=== PATIENT | female | born 1950 | race Caucasian/White ===

== ENCOUNTER → 2016-07-09 | Outpatient (CLI) | payer MEDICARE, OTHER ==
[2015-01-24 13:15] VITALS: BP 140/68
[~2016-07-09] MED LIST: ATOR40TA59 PO; BUPR150T8 PO; CETI10TA22 PO; CINN500C PO; CONTRAST GIVEN MC PRN; DOCU50CA9 PO; IOHEXOL 300 MG/ML 75 ML VIAL IV ONE; MESA800T2 PO; MULT1TAB52 PO; OMEP20CA9 PO; OXYC-323 PO; SERT100T PO; SYNTHROID PO; VITA1CAP PO
--- NOTE | 2016-07-09 12:43 | RAD ---
CTA of the chest with contrast, 07/09/2016: History: Follow-up pulmonary emboli Multidetector CT imaging was performed following an IV bolus injection of iodinated contrast material. Multiplanar reconstructions were produced including coronal MIP images. Comparison is made to a study from 01/23/2016. The main pulmonary arteries are widely patent. There is severe narrowing of the left lower lobe pulmonary artery in a pattern suggesting a partially recanalized thrombus. The appearance is unchanged since the previous study. There is a small nonocclusive filling defect in one of the segmental pulmonary arteries extending inferiorly from this level. The findings are unchanged since 01/23/2016. No definite left upper lobe or right lung pulmonary arterial filling defects are seen. Streak artifacts arising from contrast in the superior vena cava obscures portions of the proximal right upper lobe pulmonary artery. Mildly increased density in the right paratracheal/ azygos region is unchanged compatible with a residual mildly enlarged lymph node. No new or enlarging mediastinal or hilar lymph nodes are seen. No axillary adenopathy is evident. A right sided Port-A-Cath extends into the right atrium. Streaky parenchymal opacities are present in the periphery of the left lower lobe and lingula, unchanged. These probably represent scars. There is mild dependent atelectasis. No pulmonary mass or significant consolidation is seen. There is no evidence of pleural fluid. There are soft tissue densities in the celiac axis region probably representing residual adenopathy. These densities cannot be clearly from unopacified bowel on this study. A similar appearance was present on the previous exam. IMPRESSION: 1. Unchanged chronic pulmonary embolus in the left lower lobe pulmonary artery. 2. No new pulmonary emboli are detected. 3. Stable left basilar pleural-parenchymal opacities compatible with scarring. 4. Unchanged mild residual right paratracheal and celiac region adenopathy. PQRS statement: One or more of the following individualized dose reduction techniques were utilized for this examination: 1. Automated exposure control 2. Adjustment of the mA and/or kV according to patient size 3. Use of iterative reconstruction technique
== END | disposition home or self-care (01) ==
LOC: CT 11:47
PROVIDERS: ATTEND Internal Medicine Hematology & Oncology
DX: Z86.711 Personal history of pulmonary embolism (principal)
CPT/HCPCS: 71275; Q9967

== ENCOUNTER → 2016-12-20 | Outpatient (CLI) | payer MEDICARE, OTHER ==
[2015-01-24 13:15] VITALS: BP 140/68
[~2016-12-20] MED LIST changes: -CINN500C PO; +CINN500C2 PO; -CONTRAST GIVEN MC PRN; -IOHEXOL 300 MG/ML 75 ML VIAL IV ONE
--- NOTE | 2016-12-20 11:04 | RAD ---
Indication restage lymphoma. PET/CT was performed from the skull through the proximal thigh. CT was performed primarily for attenuation and localization purposes as opposed to primary diagnostic purposes. The blood sugar during the examination was entered and 16. 13.9 mCi of FDG was administered. Note is made of a prior examination one year ago. On CT the visualized brain appears unremarkable. No significant adenopathy is seen in the neck. No axillary adenopathy is seen on either side. There is no significant hilar or mediastinal adenopathy. There are scattered areas of pleural-parenchymal scarring. A dominant soft tissue mass is not seen in the chest. In the abdomen and pelvis there is soft tissue fullness in the periaortic area similar to the previous exam. Some slight soft tissue fullness along the right iliac chain is noted similar to the previous exam. On PET the radiopharmaceutical is physiologically distributed in the visualized brain. No abnormal activity is seen in the neck. No FDG avid activity is seen in either axilla. No abnormal mediastinal or hilar activity is seen. In the abdomen periaortic lymph nodes are minimally FDG avid. There is a more intense focus of FDG activity seen in the right pelvis. This is probably artifactual and in the gastrointestinal or genitourinary system. No definite CT correlate is seen in this area in the pelvis. Maximum SUV associated with these periaortic lymph nodes is approximately 3.5 IMPRESSION: Mildly FDG avid para-aortic lymph nodes are seen. The etiology or clinical significance is uncertain. The nodes may be reactive in nature. There is no evidence of recurrent disease in the chest or axilla.
== END | disposition home or self-care (01) ==
LOC: PETSC 08:02
PROVIDERS: ATTEND Internal Medicine Hematology & Oncology
DX: C85.90 Non-Hodgkin lymphoma, unspecified, unspecified site (principal)
CPT/HCPCS: 78815; A9552

== ENCOUNTER → 2017-02-25 | Outpatient (CLI) | payer MEDICARE, OTHER ==
[2015-01-24 13:15] VITALS: BP 140/68
[~2017-02-25] MED LIST changes: +CONTRAST GIVEN MC PRN; +IOHEXOL 300 MG/ML 100ML VIAL. IV ONE
--- NOTE | 2017-02-25 10:09 | RAD ---
CTA of the chest with contrast, 02/25/2017: History: Follow-up pulmonary emboli Multidetector CT imaging was performed following an IV bolus injection of iodinated contrast material. Multiplanar reconstructions were produced including coronal and sagittal MIP images. Comparison is made to a study from 07/09/2016. The main pulmonary arteries are widely patent. There is severe narrowing of the left lower lobe pulmonary artery. There is associated decreased opacification of pulmonary arteries and pulmonary veins in the left lower lobe. Similar findings were present on the previous study. The central pulmonary left upper lobe and in the right lung remain patent. No new pulmonary embolus is identified. A right Port-A-Cath remains in place extending into the superior vena cava. There is calcific plaquing of the aorta without evidence of aneurysm. An unchanged right paratracheal density is compatible with a mildly prominent lymph noted. It cannot be clearly from the unopacified azygos vein. No new mediastinal or hilar adenopathy is evident. There are streaky and predominantly linear opacities in the periphery of the left lower lobe and lingula. These are unchanged and are compatible with scars. No new pulmonary mass is seen. There is no evidence of pleural fluid. Mildly prominent retroperitoneal densities are again partially visualized in the upper abdomen suggesting mild residual adenopathy. These cannot be clearly from unopacified bowel. IMPRESSION: 1. 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 2. Mildly prominent right peritracheal and upper abdominal retroperitoneal lymph nodes. 3. No significant change since 07/09/2016 PQRS Compliance Statement: One or more of the following individualized dose reduction techniques were utilized for this examination: 1. Automated exposure control 2. Adjustment of the mA and/or kV according to patient size 3. Use of iterative reconstruction technique
== END | disposition home or self-care (01) ==
LOC: CT 08:52
PROVIDERS: ATTEND Internal Medicine Hematology & Oncology
DX: I27.82 Chronic pulmonary embolism (principal); I26.99 Other pulmonary embolism without acute cor pulmonale; R10.0 Acute abdomen
CPT/HCPCS: 71275; Q9967

== ENCOUNTER → 2017-09-19 | Day surgery (SDC) | payer MEDICARE, OTHER ==
[~2017-09-19] MED LIST changes: -ATOR40TA59 PO; -BUPR150T8 PO; -CETI10TA22 PO; -CINN500C2 PO; -CONTRAST GIVEN MC PRN; -DOCU50CA9 PO; -IOHEXOL 300 MG/ML 100ML VIAL. IV ONE; +LIDOCAINE 1% PF 2 ML VIAL. ID; +LIDOCAINE 2% PF Vial for OR 5 ML VIAL.; -MESA800T2 PO; +MORPHINE SULFATE 2 MG/ML DISP.SYRIN. IV; -MULT1TAB52 PO; -OMEP20CA9 PO; +ONDANSETRON PF 4 MG/2 ML VIAL. IV; -OXYC-323 PO; +PROCHLORPERAZINE 10 MG/2 ML VIAL. IV; +PROPOFOL 40 ML IV; -SERT100T PO; -SYNTHROID PO; -VITA1CAP PO; +fentaNYL PF VIAL 100 MCG/2 ML VIAL IV
[2017-09-19] MEDS: IV RINGERS,LACTATED 1000ML 1,000 ML IV (13:05)
== END | disposition home or self-care (01) ==
LOC: ENDOS 12:27
DX: K64.0 First degree hemorrhoids (principal); K21.0 Gastro-esophageal reflux disease with esophagitis; K29.50 Unspecified chronic gastritis without bleeding; M19.90 Unspecified osteoarthritis, unspecified site; F32.9 Major depressive disorder, single episode, unspecified; E78.00 Pure hypercholesterolemia, unspecified; F41.9 Anxiety disorder, unspecified; Z85.038 Personal history of other malignant neoplasm of large intestine; Z83.3 Family history of diabetes mellitus; Z82.49 Family history of ischemic heart disease and other diseases of the circulatory system; Z79.899 Other long term (current) drug therapy; Z98.51 Tubal ligation status; E03.9 Hypothyroidism, unspecified; Z72.89 Other problems related to lifestyle; Z85.72 Personal history of non-Hodgkin lymphomas
CPT/HCPCS: 43239; 45380; 88305; J2001; J2704

== ENCOUNTER → 2017-11-20 | Outpatient (CLI) | payer MEDICARE, OTHER ==
[2017-09-19 14:55] VITALS: BP 109/59
[~2017-11-20] MED LIST changes: +APIX2.5T PO; +ATOR40TA59 PO; +BUPR150T8 PO; +CETI10TA22 PO; +CINN500C2 PO; +DOCU50CA9 PO; +IOHEXOL 300 MG/ML 100ML VIAL. IV ONE; -LIDOCAINE 1% PF 2 ML VIAL. ID; -LIDOCAINE 2% PF Vial for OR 5 ML VIAL.; +MESA800T2 PO; -MORPHINE SULFATE 2 MG/ML DISP.SYRIN. IV; +MULT1TAB52 PO; +OMEP20CA9 PO; -ONDANSETRON PF 4 MG/2 ML VIAL. IV; +OXYC-323 PO; -PROCHLORPERAZINE 10 MG/2 ML VIAL. IV; -PROPOFOL 40 ML IV; +SERT100T PO; +SYNTHROID PO; +VITA1CAP PO; -fentaNYL PF VIAL 100 MCG/2 ML VIAL IV
--- NOTE | 2017-11-20 10:10 | RAD ---
CLINICAL HISTORY: CHRONIC PE, follow-up COMPARISON: CT PE protocol 02/25/2017, 07/09/2016 TECHNIQUE: CT of the chest following the administration of 75 mL of Omnipaque 300 intravenous contrast. Axial, coronal and sagittal reformatted images were generated. ---PQRS compliance statement - One or more of the following individualized dose reduction techniques were utilized for this study: 1. Automated exposure control 2. Adjustment of the mA and/or kV according to patient size 3. Use of iterative reconstruction technique--- FINDINGS: CHEST: Adequate contrast bolus timing. Chronic appearing PE in the left lower lobe pulmonary artery is grossly stable to prior examination 02/25/2017 with mild interval progressive recanalization of the inferior pulmonary arteries. No new pulmonary embolus is seen. Heart is not enlarged. No pericardial effusion. Right Port-A-Cath tip terminates within the distal SVC. No mediastinal or hilar lymphadenopathy by size criteria. No axillary lymphadenopathy. No pleural effusion or pneumothorax. Chronic scarring/atelectasis in the left lower lobe and lingula is seen. Patchy of platelike opacities in the right upper lobe are also seen likely atelectasis. No suspicious lung mass or nodule is identified. Visualized Upper abdomen: Minimal retroperitoneal fat infiltration within the upper abdomen of uncertain clinical significance. This is essentially unchanged. Visualized upper abdomen is otherwise unremarkable. Bones: No definite aggressive osseous lesions identified. IMPRESSION: Chronic pulmonary embolus in the left lower pole segmental pulmonary arteries with mild interval progressive recanalization, otherwise essentially stable. No new pulmonary embolus is identified. Electronically signed by: Thad Chatterjee MD (11/20/2017 10:07 AM) [id number]
== END | disposition home or self-care (01) ==
LOC: CT 08:31
PROVIDERS: ATTEND Internal Medicine Hematology & Oncology
DX: I27.82 Chronic pulmonary embolism (principal); E78.00 Pure hypercholesterolemia, unspecified; E03.9 Hypothyroidism, unspecified; K21.0 Gastro-esophageal reflux disease with esophagitis; Z85.72 Personal history of non-Hodgkin lymphomas; Z85.038 Personal history of other malignant neoplasm of large intestine; Z82.49 Family history of ischemic heart disease and other diseases of the circulatory system; Z83.3 Family history of diabetes mellitus
CPT/HCPCS: 71275; Q9967

== ENCOUNTER → 2018-03-06 | Outpatient (CLI) | payer MEDICARE, OTHER ==
[2017-09-19 14:55] VITALS: BP 109/59
[~2018-03-06] MED LIST changes: +CONTRAST GIVEN. MC PRN; -OXYC-323 PO; +OXYC1TAB15 PO
--- NOTE | 2018-03-06 14:31 | RAD ---
CTA chest with contrast 03/06/2018 Clinical indications: Chronic pulmonary embolism, follow-up. Follicular lymphoma. COMPARISON: CTA chest 06/20/2017, 02/25/2017. TECHNIQUE: Multiple CTA images of the chest were obtained following the intravenous and ministration of 100 mL Omnipaque 300. MIPS were obtained the chest. *One or more of the following individualized dose reduction techniques were utilized for this examination: 1. Automated exposure control. 2. Adjustment of the mA and/or kV according to patient size. 3. Use of iterative reconstruction technique. FINDINGS: Right IJ chest port is in similar position. Heart size is normal without significant pericardial effusion. The thoracic aorta is normal in caliber. Unchanged occlusion of major segmental branches of the left lower lobe pulmonary artery. No new central or major segmental pulmonary arterial filling defect. RV/LV ratio is less than 1. No axillary, mediastinal or hilar lymphadenopathy. Scattered areas of pleural/parenchymal scarring in the left lung. No pleural effusion, pneumothorax or suspicious noncalcified pulmonary nodule. There are no destructive osseous lesions. Limited images of the upper abdomen: Stable hepatic hypodensity when compared to 02/25/2017 examination. IMPRESSION: 1. Unchanged chronic occlusive thromboembolism in the major segmental left lower lobe pulmonary arteries. 2. No new pulmonary embolism. Electronically signed by: Ze Grace MD (03/06/2018 2:27 PM) [id number]
== END | disposition home or self-care (01) ==
LOC: CT 08:00
PROVIDERS: ATTEND Internal Medicine Hematology & Oncology
DX: I27.82 Chronic pulmonary embolism (principal); Z85.72 Personal history of non-Hodgkin lymphomas
CPT/HCPCS: 71275

== ENCOUNTER → 2018-07-10 | Outpatient (CLI) | payer MEDICARE, OTHER ==
[2017-09-19 14:55] VITALS: BP 109/59
[~2018-07-10] MED LIST changes: -CONTRAST GIVEN. MC PRN; +DULO60CA6 PO; +FLUT1DIS3 IH; +IBUP-1007 PO; -IOHEXOL 300 MG/ML 100ML VIAL. IV ONE; +LOPE2CAP88 PO; +MAGN400C PO; +MESA400C2 PO; +OMEP20CA10 PO; -OMEP20CA9 PO; +SELE200T10 PO; +ZINC30CA PO
--- NOTE | 2018-07-11 20:32 | RAD ---
Examination: PET/CT skull to midthigh History: Lymphoma restaging Comparison/Correlation: 12/20/2016 PET/CT exam skull to midthigh, CTA of the chest 03/06/2018 Findings: 14.3 mCi F-18 FDG was intravenously administered for purposes of PET/CT exam. Blood glucose level at the time of radiotracer administration was 118 mg/dL. Right-sided central venous infusion port is present. Uptake of radiotracer involving the visualized head and neck is unremarkable. Punctate nonspecific focus of uptake at the right apical pleura anteriorly with SUV max of 2.2 is nonspecific. This may have a corresponding finding on the prior PET/CT exam and is unchanged. It appears isn't a small focus of pleural thickening. No enlarged thoracic lymph nodes. No enlarged abdominal or pelvic lymph nodes. No abnormal uptake identified minimal linear atelectasis or scarring at the lung bases mainly on the left is noted. No suspicious bony process. Radiotracer uptake within bowel is diffuse and physiologic in appearance. Impression: No abnormal uptake of radiotracer to suggest active neoplastic process. No lymphadenopathy.
== END | disposition home or self-care (01) ==
LOC: PETSC 07:49
PROVIDERS: ATTEND Internal Medicine Hematology & Oncology
DX: C82.94 Follicular lymphoma, unspecified, lymph nodes of axilla and upper limb (principal)
CPT/HCPCS: 78815; A9552

== ENCOUNTER 2018-07-24 08:25 | Outpatient (CLI) | payer MEDICARE, OTHER ==
[~2018-07-24] VITALS: Ht 167.6 cm; Wt 83.9 kg
[~2018-07-24 08:25] MED LIST changes: -DULO60CA6 PO; -FLUT1DIS3 IH; -IBUP-1007 PO; -LOPE2CAP88 PO; -MAGN400C PO; -MESA400C2 PO; -SELE200T10 PO; -ZINC30CA PO
[2018-07-24] MEDS ORDERED: MIDAZOLAM HCL/PF 2 MG/2 ML VIAL. ONE ×2 (08:44→09:22)
[2018-07-24] MEDS ORDERED: fentaNYL PF VIAL 100 MCG/2 ML VIAL ONE ×2 (08:45→09:22)
[2018-07-24 08:47] LABS: BASO % 1 % (0-3); EOS # 0.2 x10^3/uL (0.0-0.7); EOS % 3 % (0-3); HEMATOCRIT 40.5 % (36.0-47.0); HEMOGLOBIN 13.4 g/dL (12.0-15.5); LYMPH # 1.1 x10^3/uL (1.0-4.8); LYMPH % 22 % (24-48); MEAN CORPUSCULAR HEMOGLOBIN 30 pg (25-35); MEAN CORPUSCULAR HGB CONC 33 g/dL (31-37); MEAN CORPUSCULAR VOLUME 92 fL (79-100); MONO # 0.5 x10^3/uL (0.0-1.1); MONO % 9 % (0-9); NEUT # 3.4 x10^3uL (1.8-7.7); NEUT % 66 % (31-73); PLATELET COUNT 311 x10^3/uL (140-400); RED BLOOD COUNT 4.41 x10^6/uL (3.50-5.40); RED CELL DISTRIBUTION WIDTH 13.5 % (11.5-14.5); WHITE BLOOD COUNT 5.1 x10^3/uL (4.0-11.0)
[2018-07-24] MEDS ORDERED: LOPE2CAP88 PO (08:59)
[2018-07-24] MEDS ORDERED: IBUP-1007 PO (08:59)
[2018-07-24] MEDS ORDERED: ZINC30CA PO (08:59)
[2018-07-24] MEDS ORDERED: MESA400C2 PO (08:59)
[2018-07-24] MEDS ORDERED: MAGN400C PO (08:59)
[2018-07-24] MEDS ORDERED: DULO60CA6 PO (08:59)
[2018-07-24] MEDS ORDERED: SELE200T10 PO (08:59)
[2018-07-24] MEDS ORDERED: FLUT1DIS3 IH (08:59)
[2018-07-24 09:01] VITALS: BP 109/63
[2018-07-24 09:03] LABS: PROTHROMBIN TIME PATIENT 12.9 SEC (11.7-14.0)
[2018-07-24] MEDS ORDERED: LIDOCAINE 1%/EPI 1:100,000 20 ML VIAL. ONE (09:06)
[2018-07-24 09:37] VITALS: BP 134/72
--- NOTE | 2018-07-24 09:43 | PDOC ---
BRIEF OPERATIVE NOTE Pre-Op Diagnosis Lymphoma Post-Op Diagnosis same Procedure Performed Port removal Surgeon Franky Anesthesia Type: Local Findings Port removal Complications None PELON ADKINS MD Jul 24, 2018 09:43
[2018-07-24 09:45] VITALS: BP 116/71
[2018-07-24] MEDS ORDERED: LIDOCAINE 1%/EPI 1:100,000 20 ML VIAL. IJ ONE (09:45)
[2018-07-24 10:45] VITALS: BP 120/68
--- NOTE | 2018-07-24 11:39 | NUR ---
Discharge Note: ASAF MARTIN Discharge instructions and discharge home medications reviewed with Patient and a copy given. All questions have been answered and understanding verbalized. No sedation used during procedure. Patient ate breakfast with no issues. The following instructions and handouts were given: Surgical site care and site infection. Discontinued lines and drains: left hand PIV, dressing clean dry intact. Patient discharged to home with friend Dorita, via private vehichle.
--- NOTE | 2018-07-24 15:53 | RAD ---
Procedure: Port-A-Cath removal fluoroscopy Clinical Indication: 68-year-old no longer requiring chemotherapy Sedation: Local anesthesia only Antibiotics: None Exposure: Kerma-Area Product: 0.2 Gycm2 Sterility: All elements of maximal sterile barrier technique including the use of a cap, mask, sterile gown, sterile gloves, large sterile sheet, appropriate hand hygiene, and 2% chlorhexidine for cutaneous antisepsis (or acceptable alternative antiseptic per current guidelines) were followed for this procedure. If ultrasound guidance was utilized, sterile ultrasound techniques were followed including use of a sterile probe cover. Consent: The procedure was explained in its entirety to the patient or the patients designated event representative by a member of the treatment team, including a discussion of the risks, benefits and commonly accepted alternatives to the procedure, as well as the expected consequences of no therapy whatsoever. Discussion of the risks included, but was not limited to, those that are most frequent and those that are rare but possibly severe or life-threatening, as well as the possibility of unforeseen complications. Technique and Findings: Following informed consent, the patient was prepped and draped in usual sterile fashion. Pulmonary fluoroscopic spot view revealed an intact port. 1% lidocaine was used to achieve local anesthesia over the area of interest. A small dermatotomy was made. Blunt dissection techniques were used to free the port from the pocket. The port was then removed in its entirety and hemostasis was achieved with manual compression. The pocket was irrigated with vancomycin impregnated sterile saline then closed with deep interrupted and running subcuticular 4-0 Vicryl suture. Complications: No immediate Impression: 1. Fluoroscopic guided Port-A-Cath removal as described
== END 2018-07-24 11:00 | disposition home or self-care (01) ==
LOC: INTRAD 08:25
PROVIDERS: ATTEND Internal Medicine Hematology & Oncology
DX: Z45.2 Encounter for adjustment and management of vascular access device (principal); C82.94 Follicular lymphoma, unspecified, lymph nodes of axilla and upper limb; Z79.01 Long term (current) use of anticoagulants; Z79.899 Other long term (current) drug therapy
CPT/HCPCS: 36415; 36590; 77001; 85025; 85610; 85730; J3490

== ENCOUNTER → 2018-11-10 | Outpatient (CLI) | payer MEDICARE, OTHER ==
[~2018-11-10] MED LIST changes: +CONTRAST GIVEN. MC PRN; +DULO60CA6 PO; +FLUT1DIS3 IH; +IBUP-1007 PO; +IOHEXOL 350 MG/ML 100 ML VIAL. IV ONE; +LOPE2CAP88 PO; +MAGN400C PO; +MESA400C2 PO; +SELE200T10 PO; +ZINC30CA PO
[2018-11-10 10:24] LABS: ALBUMIN 3.4 g/dL (3.4-5.0); ALBUMIN/GLOBULIN RATIO 1.2 (1.0-1.7); CALCIUM 8.9 mg/dL (8.5-10.1); CREATININE 0.9 mg/dL (0.6-1.0); GFR 62.3; POTASSIUM 3.9 mmol/L (3.5-5.1); TOTAL BILIRUBIN 0.5 mg/dL (0.2-1.0); TOTAL PROTEIN 6.3 g/dL (6.4-8.2)
--- NOTE | 2018-11-10 11:56 | RAD ---
EXAM: CT chest with contrast - pulmonary embolus protocol CLINICAL HISTORY: Follow-up pulmonary embolus. COMPARISON: 03/06/2018, 11/20/2017. TECHNIQUE: CT of the chest following the administration of intravenous contrast during the pulmonary arterial phase. Axial, coronal and sagittal reformatted images were generated including MIP images. ---PQRS compliance statement - One or more of the following individualized dose reduction techniques were utilized for this study: 1. Automated exposure control 2. Adjustment of the mA and/or kV according to patient size 3. Use of iterative reconstruction technique--- FINDINGS: CHEST: Diagnostic quality: Adequate. Pulmonary emboli: Chronic, nearly occlusive thrombus is seen within the left lower lobe pulmonary arterial segmental branch, essentially stable in appearance. No definite additional pulmonary embolus is identified. Right heart strain: None Pulmonary arteries: Normal in caliber. Subpleural linear opacities in lower lobes likely scarring/atelectasis. No lobar consolidation. No pleural effusion or pneumothorax. No mediastinal or hilar lymphadenopathy. No axillary lymphadenopathy. Visualized Upper abdomen: Hepatic hypodensity is stable. Vague mild retroperitoneal fat infiltration is unchanged. Bones: Osseous structures are unremarkable. IMPRESSION: 1. Chronic appearing nearly occlusive thrombus in the left lower lobe pulmonary arterial segmental branches are essentially stable. 2. No new pulmonary embolus. Electronically signed by: Thad Chatterjee MD (11/10/2018 11:53 AM) [facility]
== END | disposition home or self-care (01) ==
LOC: CT 15:31
PROVIDERS: ATTEND Internal Medicine Hematology & Oncology
DX: C82.94 Follicular lymphoma, unspecified, lymph nodes of axilla and upper limb (principal); J98.4 Other disorders of lung; Z91.048 Other nonmedicinal substance allergy status
CPT/HCPCS: 36415; 71275; 80053; Q9967

== ENCOUNTER → 2019-09-18 | Outpatient (CLI) | payer MEDICARE, OTHER ==
[~2019-09-18] MED LIST changes: -CETI10TA22 PO; +CETI10TA24 PO; -CONTRAST GIVEN. MC PRN; -IOHEXOL 350 MG/ML 100 ML VIAL. IV ONE; +LOPE-101 PO; -LOPE2CAP88 PO; +MULT-445 PO; -MULT1TAB52 PO; -OMEP20CA10 PO; +OMEP20CA16 PO
[2019-09-18 09:17] LABS: BASO # 0.1 x10^3/uL (0.0-0.2); BASO % 2 % (0-3); EOS # 0.3 x10^3/uL (0.0-0.7); EOS % 6 % (0-3); HEMATOCRIT 43.2 % (36.0-47.0); HEMOGLOBIN 14.8 g/dL (12.0-15.5); LYMPH # 0.9 x10^3/uL (1.0-4.8); LYMPH % 19 % (24-48); MEAN CORPUSCULAR HEMOGLOBIN 31 pg (25-35); MEAN CORPUSCULAR HGB CONC 34 g/dL (31-37); MEAN CORPUSCULAR VOLUME 90 fL (79-100); MONO # 0.5 x10^3/uL (0.0-1.1); MONO % 11 % (0-9); NEUT # 2.9 x10^3/uL (1.8-7.7); NEUT % 62 % (31-73); PLATELET COUNT 379 x10^3/uL (140-400); RED BLOOD COUNT 4.79 x10^6/uL (3.50-5.40); RED CELL DISTRIBUTION WIDTH 13.2 % (11.5-14.5); WHITE BLOOD COUNT 4.7 x10^3/uL (4.0-11.0)
[2019-09-18 09:28] LABS: ALBUMIN 3.6 g/dL (3.4-5.0); ALBUMIN/GLOBULIN RATIO 1.2 (1.0-1.7); TOTAL BILIRUBIN 0.7 mg/dL (0.2-1.0); TOTAL PROTEIN 6.6 g/dL (6.4-8.2)
--- NOTE | 2019-09-18 18:52 | RAD ---
EXAM: PET W CT SKULL TO MIDTHIGH EXAM DATE: 09/18/2019 INDICATION: Restage lymphoma RADIOPHARMACEUTICAL: 14.7 mCi of F-18 Fluorodeoxyglucose (FDG) I.V. via the left antecubital fossa. TECHNIQUE: Patient weight: 175 pounds. Following at least four-hour fasting, the patient's blood glucose was 97 mg/dl. Approximately 1 hour after administration of FDG, overlapping emission scanning was performed from the orbital meatal line through the pelvis. A low-dose CT was performed for attenuation correction purposes and anatomic localization. Fused images of PET and CT were reviewed. Any standardized uptake values (SUV) reported are maximum values within a volume region of interest, expressed in gm/ml. COMPARISON: PET images of 07/10/2018, CT pulmonary angiogram of 11/10/2018 FINDINGS: PET: In the head and neck, right-sided level 4 and supraclavicular lymph nodes show FDG uptake to max SUV of 9.12. Level 7 cervical lymphadenopathy shows a max SUV of 6.63. In the chest, right level 2 axillary lymph nodes show abnormal FDG uptake to max SUV of 10.2. New right anterior subpleural mass shows FDG uptake to max SUV of 9.55. Left anterior mediastinal uptake, likely representing superior mediastinal lymphadenopathy shows FDG uptake to max SUV of 9.80. At the right hilum, FDG uptake to max SUV of 5.93 is present. In the left inferior hilum, FDG uptake to max SUV of 6.20 is noted. In the posterior right hemithorax between the seventh and eighth ribs is a subpleural nodule showing uptake to max SUV of 8.39. Background mediastinal activity shows a max SUV of 2.8. In the abdomen, a mass at the gastrohepatic ligament shows abnormal FDG uptake to max SUV of 9.99. Left periaortic node near the hiatus shows uptake to max SUV of 11.90. Mid abdominal aorta caval node shows a max SUV of 10.8. A round nodule in the inferior aspect of the posterior pararenal space shows FDG uptake to max SUV of 2.54. Background liver activity shows a max SUV of 2.8. In the pelvis, there is abnormal uptake along the iliopsoas groove to a max SUV of 7.23 and uptake along the right internal iliac node to a max SUV of 9.33 is seen. There is uptake in the left adnexal pelvic soft tissues (fused axial image 40, series 603), representing an enlarged mesenteric lymph node with max SUV of 6.29. Along the posterior right chest wall in the distribution of the ribs are multiple foci of abnormal FDG uptake, equivocal for uptake in the ribs associated with registration artifact versus intrapleural subpleural hypermetabolic nodules, or uptake in the intercostal muscles from increased work of respiration. There is otherwise no uptake suggestive of hypermetabolic activity in the skeletal system. CT: The multiple foci of abnormal FDG uptake are generally associated with multiple enlarged soft tissue masses compatible with lymphadenopathy. In the head and neck, the largest nodes in the right supraclavicular fossa measuring 4.2 cm in length by 1.6 cm in short axis diameter (image 55 of series 3). In the chest, the right anterior subpleural mass measures 4.1 x 2.6 cm in oblique transverse by oblique AP dimensions (image 75 of series 3). Additional note is made of a large right pleural effusion resulting in near complete lobar atelectasis of the right lower lobe. No fractures or aggressive appearing osseous lesions are identified, especially along the posterior right ribs where abnormal FDG uptake is observed on same-day PET scan. In the abdomen and pelvis, multiple periaortic lymph nodes present correlating with the abnormal FDG uptake on same-day PET scan. Most are surrounded by soft tissue stranding that obscures their margins. The largest mass of tissue showing abnormal uptake in the abdomen and pelvis appears to be the gastrohepatic ligament mass on CT measures approximately 5.4 x 5.1 cm in AP by transverse diameters. The enlarged left mesenteric lymph node in the pelvis measures 1.7 cm transverse by 1.1 cm AP (axial image 226 of series 3). IMPRESSION: Extensive abnormal FDG uptake in the neck, chest, abdomen and pelvis, consistent with metabolically active recurrent disease, representing a significant increase in activity from the previous exam. Suad score 5 Electronically signed by: Dagoberto Rodriguez MD (09/18/2019 6:50 PM) [id number]
== END ==
LOC: PETSC 08:46
PROVIDERS: ATTEND Internal Medicine Hematology & Oncology
DX: C82.94 Follicular lymphoma, unspecified, lymph nodes of axilla and upper limb (principal); J98.11 Atelectasis; J90 Pleural effusion, not elsewhere classified; R59.0 Localized enlarged lymph nodes
CPT/HCPCS: 78815; 80053; 82232; 83615; 85025; A9552

== ENCOUNTER → 2019-09-23 | Outpatient (CLI) | payer MEDICARE, OTHER ==
[2019-09-23] VITALS (8 sets, daily range): BP systolic 107–130; BP diastolic 64–84
[~2019-09-23] VITALS: Ht 170.2 cm; Wt 79.4 kg
[~2019-09-23] MED LIST changes: +ALBU2.5V8 IH; +COLE1TAB2 PO; +LEVO50TA PO; +LIDOCAINE 1%/EPI 1:100,000 20 ML VIAL. ONE; +LIDOCAINE 1%/EPI 1:100,000 20 ML VIAL. SQ ONE; +LIDOCAINE WITH 8.4% SOD BICARB 3 ML DISP.SYRIN. IJ ONE; +LIDOCAINE WITH 8.4% SOD BICARB 3 ML DISP.SYRIN. ONE; +MIDAZOLAM HCL/PF 5 MG/5 ML VIAL. IV ONE; +MIDAZOLAM HCL/PF 5 MG/5 ML VIAL. ONE; +ceFAZolin SODIUM IV Push 1 GM VIAL. IVP ONE; +fentaNYL PF VIAL 100 MCG/2 ML VIAL IV ONE; +fentaNYL PF VIAL 100 MCG/2 ML VIAL ONE
[2019-09-23 09:24] LABS: BASO # 0.1 x10^3/uL (0.0-0.2); BASO % 1 % (0-3); EOS # 0.2 x10^3/uL (0.0-0.7); EOS % 4 % (0-3); HEMATOCRIT 42.8 % (36.0-47.0); HEMOGLOBIN 14.9 g/dL (12.0-15.5); LYMPH # 0.8 x10^3/uL (1.0-4.8); LYMPH % 14 % (24-48); MEAN CORPUSCULAR HEMOGLOBIN 31 pg (25-35); MEAN CORPUSCULAR HGB CONC 35 g/dL (31-37); MEAN CORPUSCULAR VOLUME 90 fL (79-100); MONO # 0.6 x10^3/uL (0.0-1.1); MONO % 10 % (0-9); NEUT % 71 % (31-73); PLATELET COUNT 366 x10^3/uL (140-400); RED BLOOD COUNT 4.76 x10^6/uL (3.50-5.40); RED CELL DISTRIBUTION WIDTH 13.4 % (11.5-14.5); WHITE BLOOD COUNT 5.6 x10^3/uL (4.0-11.0)
[2019-09-23 09:33] LABS: PROTHROMBIN TIME PATIENT 12.3 SEC (11.7-14.0)
[2019-09-23 09:56] LABS: CALCIUM 9.2 mg/dL (8.5-10.1); CREATININE 0.9 mg/dL (0.6-1.0); GFR 62.1; POTASSIUM 3.7 mmol/L (3.5-5.1)
--- NOTE | 2019-09-23 12:37 | NUR ---
Discharge Note: MARIA INES MARTIN Discharge instructions and discharge home medications reviewed with Patient and a copy given. All questions have been answered and understanding verbalized. The following instructions and handouts were given: Moderate sedation, Bone marrow biopsy, and port placement. Discontinued lines and drains: IV left in due to pt taken to echo. Patient discharged to echo department with Gina via wheelchair.
--- NOTE | 2019-09-23 14:37 | CARD ---
MR#: [id number] Date of Study: 09/23/2019 Ordering Physician: ZIGGY MACIEL, Referring Physician: ZIGGY MACIEL, Tech: Gina Peña RDCS APPROVED REPORT EXAM: Two-dimensional and M-mode echocardiogram with Doppler and color Doppler. Other Information Quality : Fair Rhythm : Tachycardia INDICATION LV Function:Systolic Lymphoma-Starting Chemotherapy 2D DIMENSIONS RVDd2.8 (2.9-3.5cm)Left Atrium(2D)1.9 (1.6-4.0cm) IVSd0.8 (0.7-1.1cm)Aortic Root(2D)2.7 (2.0-3.7cm) LVDd3.3 (3.9-5.9cm)LVOT Diameter1.6 (1.8-2.4cm) PWd0.8 (0.7-1.1cm)LVDs2.0 (2.5-4.0cm) FS (%) 30.0 %LVEF(%)60.0 (>50%) LEFT VENTRICLE The left ventricle is normal size. There is normal left ventricular wall thickness. The left ventricu lar systolic function is normal. The Ejection Fraction is 60-65%. There is normal LV segmental wall m otion. RIGHT VENTRICLE The right ventricle is normal size. The right ventricular systolic function is normal. ATRIA The left atrium size is normal. The right atrium size is normal. GREAT VESSELS na PERICARDIAL EFFUSION There is large pleural effusion. There is a trace loculated right sided pericardial effusion. Critical Notification Critical Value: No <Conclusion> Limited echo to assess LV function. The left ventricular systolic function is normal. The Ejection Fraction is 60-65%. There is normal LV segmental wall motion. Signed by : Jeff Briscoe, Electronically Approved : 09/23/2019 14:37:11
--- NOTE | 2019-09-24 08:08 | RAD ---
CT-guided bone marrow biopsy. 09/24/2019 6:05 AM Indication: LYMPHOMA Discussion: The risks and benefits of the procedure, including but not limited to, bleeding and infection were discussed patient. Informed consent was obtained. The patient was brought to the CT scanner and placed in the prone position. A timeout procedure was performed. [facility] CT imaging of the pelvis demonstrated left ilium amenable to bone marrow biopsy. The overlying soft tissues were prepped and draped using maximum sterile barrier technique. 1% lidocaine without epinephrine was administered for local anesthesia. Under intermittent CT guidance, an OncControl needle was advanced into the bone marrow of the left iliac crest. 2 Aspirates and 1 core biopsy samples were obtained. Samples were delivered to pathology was present at the time of procedure. The needle was removed and manual pressure held to achieve hemostasis. No immediate complications were identified. The procedure was performed under conscious sedation including continuous cardiopulmonary monitoring via dedicated sedation nurse. Sedation time: 10 minutes Impression: Successful CT-guided bone marrow biopsy of the left iliac crest . PQRS Compliance Statement: One or more of the following individualized dose reduction techniques were utilized for this examination: 1. Automated exposure control 2. Adjustment of the mA and/or kV according to patient size 3. Use of iterative reconstruction technique
--- NOTE | 2019-09-24 08:09 | RAD ---
Procedure: Ultrasound and fluoroscopically guided placement of right internal jugular power port.. 09/24/2019 6:05 AM Clinical Indication: CHEMOTHERAPY Sedation: Conscious sedation was administered for 50 minutes. The patient was monitored by a qualified independent observer throughout the time of sedation. Please refer to the medical record for exact doses of medications utilized to achieve moderate sedation. Fluoroscopy time: 1 minutes Dose area product: 2 Gycm2 Consent: The procedure was explained in its entirety to the patient or the patients designated ambulatory services representative by a member of the treatment team, including a discussion of the risks, benefits and commonly accepted alternatives to the procedure, as well as the expected consequences of no therapy whatsoever. Discussion of the risks included, but was not limited to, those that are most frequent and those that are rare but possibly severe or life-threatening, as well as the possibility of unforeseen complications. Technique and Findings: All elements of maximal sterile barrier technique including the use of a cap, mask, sterile gown, sterile gloves, large sterile sheet, appropriate hand hygiene, and 2% chlorhexidine for cutaneous antisepsis (or acceptable alternative antiseptic per current guidelines) were followed for this procedure. Following informed consent, and a timeout procedure, the patient was prepped and draped in the usual sterile fashion. Ultrasound interrogation of the right neck revealed patency and compressibility of the right internal jugular vein. A 21-gauge micropuncture was then used to gain access to this vein under ultrasound guidance. A hard copy ultrasound image was recorded. The needle was exchanged over a wire for a sheath. A 1 inch incision was made several centimeters inferior to the venotomy site. A catheter was tunneled from this site dermatotomy site in the neck. Catheter was advanced through peel-away sheath such that its tip was in the proximal right atrium with the patient supine. The catheter was trimmed to length and connected to the port reservoir. The port was found to flush and aspirate normally. The wound was closed in layers using 4-0 Vicryl suture. Sterile dressings were applied. Impression: Successful ultrasound and fluoroscopically guided placement of a right internal jugular PowerPort
== END ==
LOC: INTRAD 08:37
PROVIDERS: ATTEND Internal Medicine Hematology & Oncology
DX: Z45.2 Encounter for adjustment and management of vascular access device (principal); C85.90 Non-Hodgkin lymphoma, unspecified, unspecified site
CPT/HCPCS: 36415; 36561; 38222; 76937; 77001; 77012; 80048; 85025; 85610; 93308; 99152; 99153; C1751; C1892; C1894; J0690; J2250; J3010; J3490

== ENCOUNTER → 2019-11-13 | Outpatient (CLI) | payer MEDICARE, OTHER ==
[2019-09-23 12:20] VITALS: BP 124/66
[~2019-11-13] MED LIST changes: -LIDOCAINE 1%/EPI 1:100,000 20 ML VIAL. ONE; -LIDOCAINE 1%/EPI 1:100,000 20 ML VIAL. SQ ONE; -LIDOCAINE WITH 8.4% SOD BICARB 3 ML DISP.SYRIN. IJ ONE; -LIDOCAINE WITH 8.4% SOD BICARB 3 ML DISP.SYRIN. ONE; -MIDAZOLAM HCL/PF 5 MG/5 ML VIAL. IV ONE; -MIDAZOLAM HCL/PF 5 MG/5 ML VIAL. ONE; -ceFAZolin SODIUM IV Push 1 GM VIAL. IVP ONE; -fentaNYL PF VIAL 100 MCG/2 ML VIAL IV ONE; -fentaNYL PF VIAL 100 MCG/2 ML VIAL ONE
--- NOTE | 2019-11-13 18:12 | RAD ---
EXAM: PET W CT SKULL TO MIDTHIGH EXAM DATE: 11/13/2019 INDICATION: Lymphoma restaging RADIOPHARMACEUTICAL: 15.0 mCi of F-18 Fluorodeoxyglucose (FDG) I.V. via the left antecubital fossa. TECHNIQUE: Patient weight: 165 pounds. Following at least four-hour fasting, the patient's blood glucose was 108 mg/dl. Approximately 1 hour after administration of FDG, overlapping emission scanning was performed from the orbital meatal line through the pelvis. A low-dose CT was performed for attenuation correction purposes and anatomic localization. Fused images of PET and CT were reviewed. Any standardized uptake values (SUV) reported are maximum values within a volume region of interest, expressed in gm/ml. COMPARISON: PET CT of 09/18/2019 FINDINGS: PET: In the head and neck, no abnormal FDG uptake is identified. In the chest, residual anterior mediastinal soft tissue, markedly decreased in size shows minimal FDG uptake to max SUV of 4.71. This compares with background mediastinal FDG uptake to max SUV of 2.81. In the abdomen and pelvis, no abnormal FDG uptake is identified. Background hepatic activity is a max SUV of 3.41. Residual soft tissue stranding in the left periaortic retroperitoneal soft tissues at the level of the left renal vein shows FDG uptake to a max SUV of 3.09. In the musculoskeletal system, no residual abnormal FDG uptake is identified. CT: Attenuation correction CT images show interval decrease in size of previously enlarged cervical lymph nodes, with largest being a residual 7 mm short axis diameter, 2 cm long supraclavicular lymph node that has decrease in size from 1.5 x 4.2 cm previously. In addition to interval decrease in mediastinal adenopathy, the previously evident right pleural effusion has resolved. Patient has a right jugular approach tunneled chest port placed in the interval. Abdomen and pelvis CT images show marked interval decrease in upper abdominal adenopathy residual mildly enlarged left para-aortic lymph nodes. No unexpected additional findings in the musculoskeletal system. IMPRESSION: Strikingly positive treatment response with decrease in size and metabolic activity of abnormal lymph nodes previously evident chest, abdomen and pelvis as described. Electronically signed by: Dagoberto Rodriguez MD (11/13/2019 6:08 PM) [id number]
== END ==
LOC: PETSC 08:07
PROVIDERS: ATTEND Internal Medicine Hematology & Oncology
DX: Z11.59 Encounter for screening for other viral diseases (principal); C83.32 Diffuse large B-cell lymphoma, intrathoracic lymph nodes
CPT/HCPCS: 78815; A9552

== ENCOUNTER → 2020-01-22 | Outpatient (CLI) | payer MEDICARE, OTHER ==
[2019-09-23 12:20] VITALS: BP 124/66
[~2020-01-22] MED LIST changes: -CETI10TA24 PO; +CETI10TA74 PO
--- NOTE | 2020-01-22 16:54 | RAD ---
CLINICAL HISTORY: Lymphoma INDICATION: Restaging. COMPARISON: PET/CT 11/13/2019 TECHNIQUE: Location of scan: [facility] Radi[facility]armaceutical Dose: 14.89 mCi F-18 FDG intravenous Blood glucose at time of study: 118 FDG uptake time = 60 minutes. Images were obtained from the skull base to the proximal thighs A low dose, noncontrast CT study was performed for the purpose of attenuation correction and anatomic localization. FINDINGS: Head and Neck: There is physiologic radiotracer uptake in the head and neck. Chest: In the anterior mediastinum, residual soft tissue has slightly decreased and has low level FDG uptake, SUV max 2.5 . Background mediastinal FDG uptake has SUV max 2.20. No FDG avid lymph nodes or other abnormal uptake in the chest. No new lymphadenopathy. Right chest wall port unchanged. There is atelectasis in the left lung base. Several new subpleural nodular opacities in the left lung base measuring approximately 1.5 cm have no FDG uptake. No effusion. Heart size is normal. Abdomen and Pelvis: In the abdomen and pelvis, a residual gastric hepatic ligament lymph node has low level FDG uptake with max 2.6. Background hepatic activity has SUV max 3.17. FDG uptake in residual ill-defined left periaortic soft tissue at the level of the renal vein has SUV max 2.54. No FDG avid lymph nodes or other abnormal uptake in the abdomen and pelvis. Unchanged simple cyst in the posterior hepatic lobe without FDG uptake. The gastrohepatic ligament lymph node measures approximately 2.6 x 1.6 cm, unchanged. No new lymphadenopathy. Skeletal: No abnormal FDG uptake in the bones or soft tissue. IMPRESSION: No FDG avid disease. Slightly decreased, residual low level FDG uptake in anterior mediastinal soft tissue, gastrohepatic ligament, and left periaortic soft tissue.
== END ==
LOC: PETSC 07:44
PROVIDERS: ATTEND Internal Medicine Hematology & Oncology
DX: C83.32 Diffuse large B-cell lymphoma, intrathoracic lymph nodes (principal); J98.11 Atelectasis; R91.1 Solitary pulmonary nodule; K76.89 Other specified diseases of liver
CPT/HCPCS: 78815; A9552

== ENCOUNTER → 2020-07-01 | Outpatient (CLI) | payer MEDICARE, OTHER ==
[2019-09-23 12:20] VITALS: BP 124/66
--- NOTE | 2020-07-01 10:41 | RAD ---
NM PET/CT SKULL BASE TO MID THIGH Clinical Indication: Lymphoma Comparison: January 22, 2020, November 13, 2019 and September 18, 2019 Technique: Patient blood glucose at the time of injection is 103 mg/dL. The patient was administered 14.1 mCi of F-18 FDG intravenously. The patient rested quietly during a 60 minute uptake period. Then PET imaging from the skull base to the upper thighs was performed. A noncontrast CT was acquired ove r this same area. The CT is for attenuation correction and anatomic localization, it is not of diagno stic quality and is not intended to diagnose disease independently of the PET. PQRS Compliance Statement: One or more of the following individualized dose reduction techniques were utilized for this examinat ion: 1. Automated exposure control 2. Adjustment of the mA and/or kV according to patient size 3. Use of iterative reconstruction technique Findings: Background: Mediastinal SUV max: 2.3 Liver SUV max: 3.08 Head and neck: There is no evidence of FDG-avid disease. Chest: Right chest wall port. No hypermetabolic lymphadenopathy within the chest. Left lower lobe and lingul ar linear atelectasis or scarring, unchanged. No consolidation or pleural effusion. No pneumothorax. Coronary artery calcific effusions. Abdomen and pelvis: Right hepatic lobe hypodensity, unchanged and likely cyst. The spleen, adrenal glands, and pancreas a re unremarkable. Cholelithiasis. Unremarkable noncontrast appearance of the kidneys. Normal appendix. No evidence of bowel obstruction. No ascites. Mild atherosclerotic plaque within the nonaneurysmal abdominal aorta and branch vessels. Unchanged left periaortic conglomerate of lymph nodes measures 2.4 x 1.7 cm (series 3 image 209) SUV max 2.5. Increased nonspecific infiltration of the mesentery compared to prior. No increased metaboli c activity. Musculoskeletal: Low level physiologic muscle uptake within the paraspinal region and shoulder regions. Multilevel cer vical spondylosis. Multilevel lumbar spondylosis. IMPRESSION: 1. No significant or new hypermetabolic activity. 2. Unchanged left periaortic conglomerate lymph nodes with low level metabolic activity. 3. Increased nonspecific infiltration of the mesentery. Recommend attention on follow-up. 4. Cholelithiasis. Electronically signed by: Alejandro Duke DO (07/01/2020 10:39 AM) [id number]
== END ==
LOC: PETSC 09:25
PROVIDERS: ATTEND Internal Medicine Hematology & Oncology
DX: C83.32 Diffuse large B-cell lymphoma, intrathoracic lymph nodes (principal); K80.20 Calculus of gallbladder without cholecystitis without obstruction; I25.10 Atherosclerotic heart disease of native coronary artery without angina pectoris
CPT/HCPCS: 78815; A9552

== ENCOUNTER → 2020-07-22 | Outpatient (CLI) | payer MEDICARE, OTHER ==
[2019-09-23 12:20] VITALS: BP 124/66
[2020-07-22] MEDS: IOHEXOL 350 MG/ML 100 ML VIAL. IV ONE (10:13)
--- NOTE | 2020-07-22 16:52 | RAD ---
EXAM: CT ANGIOGRAPHY OF THE CHEST WITH AND WITHOUT CONTRAST. HISTORY: Pulmonary embolism. Lymphoma. TECHNIQUE: Computed tomographic angiography of the chest was performed before and after the intraveno us administration of iodinated contrast. 3-D maximum intensity projections were also performed. One o r more of the following individualized dose reduction techniques were utilized for this examination: 1. Automated exposure control. 2. Adjustment of the mA and/or kV according to patient size. 3. Use of iterative reconstruction technique. COMPARISON: 07/01/2020, 11/10/2018. FINDINGS: Images of the upper abdomen reveal a cyst within the right hepatic lobe measures 1.7 x 1.2 cm. There is a separate origin of the common hepatic artery directly from the aorta. There is moderat e stenosis at its origin. There is soft tissue density within the gastrohepatic ligament, surrounding the left gastric artery. It measures 3.6 x 2.1 cm. A soft tissue density extends in the retroperiton eum through the inferior margin of the [id number]. No pancreatic parenchymal lesion is seen. Bone windows reveal no suspicious lesions. No pulmonary emboli are identified. There is a severe stricture of the left lower lobe pulmonary cielo ry, adjacent to a lymph node measuring 12 x 7 mm this is stable chronically. There is no aortic disse ction or aneurysm. Soft tissue densities within the anterior mediastinal fat measure 3.0 x 0.9 cm and are new since the prior study. There is no pleural or pericardial effusion. The heart is not enlarged. A right-sided po rt catheter has its tip in the superior cavoatrial junction. Pleural-parenchymal scarring within the left base is stable chronically. IMPRESSION: 1. 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 This may be from extrinsic compr ession as can be seen in the setting of fibrosing mediastinitis rather than an embolus. 2. Increased soft tissue within anterior mediastinum and upper abdomen consistent with progression of lymphoma since 2019. Electronically signed by: Wendy Ward MD (07/22/2020 4:50 PM) [id number]
== END ==
LOC: CT 09:33
PROVIDERS: ATTEND Internal Medicine Hematology & Oncology
DX: I26.99 Other pulmonary embolism without acute cor pulmonale (principal); K76.89 Other specified diseases of liver; Q25.6 Stenosis of pulmonary artery
CPT/HCPCS: 71275; Q9967

== ENCOUNTER → 2021-01-06 | Outpatient (CLI) | payer MEDICARE, OTHER ==
[2019-09-23 12:20] VITALS: BP 124/66
[~2021-01-06] MED LIST changes: -DULO60CA6 PO; +DULO60CA7 PO
--- NOTE | 2021-01-13 13:55 | RAD ---
EXAM: PET/CT SKULL BASE THROUGH MID THIGH. HISTORY: Lymphoma status post treatment. TECHNIQUE: CT of the skull base through the mid thighs was performed for the purposes of attenuation correction. 11.2 mCi F-18 fluorodeoxyglucose were administered intravenously. Blood glucose level at the time of administration was 87 mg/dL. After an uptake period, positron emission tomography of the skull base through the mid thighs was performed. The PET and CT data were fused and interpreted in co mbination on a dedicated workstation. COMPARISON: 07/01/2020, 01/22/2020. FINDINGS: Bilateral laryngeal uptake demonstrates maximum SUV 6.1 and likely reflects activity during the uptake period. Diffuse muscular uptake is also consistent with muscular activity. Soft tissue density within the anterior mediastinal fat has increased in thickness. In overall size i t measures 3.5 x 1.4 cm as compared with 2.4 x 0.7 cm. There is associated hypermetabolism with maxim um tissue the 4.2. Suggested activity along the superior vena cava may be within a port catheter. Mild hypermetabolism at the gastroesophageal junction demonstrates maximum SUV 3.7 and suggests eithe r peristalsis or inflammation. A soft tissue mass just inferior to the right kidney measures 1.7 x 0.8 cm with maximum SUV 3.6. A sm all soft tissue mass just medial to the left ovary measures 9 x 6 mm and is slightly more prominent. Max SUV is 2.7. Additional CT findings include, a 1.7 cm cyst in the right hepatic lobe. There is atelectasis or scar ring in the left lung base. A 3 mm nodule in the right middle lobe on image 119 appears benign. A rig ht-sided port catheter has its tip in the right atrium. There are changes of right rotator cuff repai r. IMPRESSION: 1. Soft tissue masses within the anterior mediastinum, inferior to the right kidney and left hemipelv is have increased and demonstrate mild hypermetabolism. This is consistent with recurrence. Electronically signed by: Wendy Ward MD (01/13/2021 1:53 PM) [id number]
== END ==
LOC: PETSC 08:48
PROVIDERS: ATTEND Internal Medicine Hematology & Oncology
DX: C83.32 Diffuse large B-cell lymphoma, intrathoracic lymph nodes (principal); R91.1 Solitary pulmonary nodule; K76.89 Other specified diseases of liver
CPT/HCPCS: 78815; A9552

== ENCOUNTER → 2021-03-17 | Outpatient (CLI) | payer MEDICARE, OTHER ==
[2019-09-23 12:20] VITALS: BP 124/66
--- NOTE | 2021-03-17 14:51 | RAD ---
NM PET/CT SKULL BASE TO MID THIGH Clinical Indication: Restaging lymphoma. Comparison: January 06, 2021 and July 01, 2020 Technique: Patient blood glucose at the time of injection is 98 mg/dL. The patient was administered 1 2.9 mCi of F-18 FDG intravenously. The patient rested quietly during a 60 minute uptake period. Then PET imaging from the skull base to the upper thighs was performed. A noncontrast CT was acquired over this same area. The CT is for attenuation correction and anatomic localization, it is not of diagnos tic quality and is not intended to diagnose disease independently of the PET. PQRS Compliance Statement: One or more of the following individualized dose reduction techniques were utilized for this examinat ion: 1. Automated exposure control 2. Adjustment of the mA and/or kV according to patient size 3. Use of iterative reconstruction technique Findings: Background: Mediastinal SUV max: 3.8 Liver SUV max: 4.69 Head and neck: There is no evidence of FDG-avid disease. Chest: Increased soft tissue mass within the anterior mediastinum measures 3.1 x 0.9 cm with increased metab olic activity SUV Max 6.4. Right chest wall port. Scattered reticular linear left upper and lower lobe opacities, similar compared to prior, may relate to atelectasis or scarring. No consolidation. No pleural effusion. No pneumothorax. Increased retropectoral hypermetabolic lymph node measures 1.4 x 1.2 cm (series 3 image 96. SUV Max 3 .22. Enlarged right internal mammary lymph node with increased metabolic activity measures 1.8 x 0.7 cm (series 3 image 109) SUV max 3.11. Abdomen and pelvis: Unchanged right inferior hepatic hypodensity. The spleen, adrenal glands, and pancreas unremarkable. Cholelithiasis. No renal calculus. No hydronephrosis. Normal appearance of the urinary bladder. No ev idence of bowel obstruction. No ascites. Physiologic uptake within the stomach. Soft tissue mass inferior to the right kidney measures 2.1 x 0.9 cm SUV max 3.68, similar compared to prior size. Decreased metabolic activity compared to prior. Left retroperitoneal nodule measures 0.8 x 0.9 cm increased compared to prior. SUV max 1.99. Nodule adjacent to the left ovary measures 1.3 x 1.1 cm, slightly increased compared to prior. SUV max 2.2. Unchanged periaortic soft tissue thickeni ng with metabolic activity below background. Musculoskeletal: Physiologic upper cervical paraspinal activity. IMPRESSION: 1. Overall findings concerning for disease progression. 2. Mildly increased anterior mediastinal soft tissue mass with increased metabolic activity. 3. Mildly increased right retropectoral, left internal mammary, left retroperitoneal and left periov jovanni enlarged lymph nodes with increased metabolic activity. 4. Unchanged right inferior renal soft tissue mass. Electronically signed by: Alejandro Duke DO (03/17/2021 2:49 PM) [id number]
== END ==
LOC: PETSC 10:25
PROVIDERS: ATTEND Internal Medicine Hematology & Oncology
DX: C83.32 Diffuse large B-cell lymphoma, intrathoracic lymph nodes (principal); K80.20 Calculus of gallbladder without cholecystitis without obstruction; M79.89 Other specified soft tissue disorders; R59.9 Enlarged lymph nodes, unspecified
CPT/HCPCS: 78815; A9552

== ENCOUNTER 2021-04-26 06:39 | Outpatient (CLI) | payer MEDICARE, OTHER ==
[2021-04-26] VITALS (7 sets, daily range): BP systolic 107–124; BP diastolic 52–68
[~2021-04-26] VITALS: Ht 167.6 cm; Wt 77.2 kg
[2021-04-26 07:41] LABS: BASO # 0.1 x10^3/uL (0.0-0.2); BASO % 1 % (0-3); EOS # 0.5 x10^3/uL (0.0-0.7); EOS % 12 % (0-3); HEMATOCRIT 40.6 % (36.0-47.0); HEMOGLOBIN 13.6 g/dL (12.0-15.5); LYMPH # 0.9 x10^3/uL (1.0-4.8); LYMPH % 23 % (24-48); MEAN CORPUSCULAR HEMOGLOBIN 31 pg (25-35); MEAN CORPUSCULAR HGB CONC 34 g/dL (31-37); MEAN CORPUSCULAR VOLUME 92 fL (79-100); MONO # 0.5 x10^3/uL (0.0-1.1); MONO % 13 % (0-9); NEUT # 2.1 x10^3/uL (1.8-7.7); NEUT % 51 % (31-73); PLATELET COUNT 266 x10^3/uL (140-400); RED BLOOD COUNT 4.41 x10^6/uL (3.50-5.40); RED CELL DISTRIBUTION WIDTH 13.2 % (11.5-14.5); WHITE BLOOD COUNT 4.1 x10^3/uL (4.0-11.0)
[2021-04-26 07:45] LABS: PROTHROMBIN TIME PATIENT 13.2 SEC (11.7-14.0)
[2021-04-26 07:53] LABS: CALCIUM 8.7 mg/dL (8.5-10.1); CREATININE 0.8 mg/dL (0.6-1.0); GFR 70.7; POTASSIUM 4.3 mmol/L (3.5-5.1)
[2021-04-26 07:59] LABS: ALBUMIN 3.6 g/dL (3.4-5.0); ALBUMIN/GLOBULIN RATIO 1.2 (1.0-1.7); TOTAL BILIRUBIN 0.4 mg/dL (0.2-1.0); TOTAL PROTEIN 6.5 g/dL (6.4-8.2)
[2021-04-26] MEDS ORDERED: LIDOCAINE WITH 8.4% SOD BICARB 3 ML DISP.SYRIN. ONE (08:07)
[2021-04-26] MEDS ORDERED: LIDOCAINE WITH 8.4% SOD BICARB 3 ML DISP.SYRIN. INJ ONE (08:45)
[2021-04-26] MEDS ORDERED: HEPARIN PF 500 UNIT/5 ML DISP.SYRIN. IVP ONE ×2 (09:15→09:30)
--- NOTE | 2021-04-26 09:55 | NUR ---
port dc'd and heparin flushed. Pt ambulated and discharged to home with friend.
--- NOTE | 2021-04-26 14:47 | RAD ---
Ultrasound-guided fine-needle aspiration, right internal mammary lymph node 04/26/2021 Consent: The procedure was explained in its entirety to the patient or the patients designated repres entative by a member of the treatment team, including a discussion of the risks, benefits and commonl y accepted alternatives to the procedure, as well as the expected consequences of no therapy whatsoev er. Discussion of the risks included, but was not limited to, those that are most frequent and thos e that are rare but possibly severe or life-threatening, as well as the possibility of unforeseen com plications. The right chest was prepped and draped using sterile barrier technique. 1% lidocaine was administered for local anesthesia. Ultrasound evaluation estimates a small lymph node in the left mammary chain w hich correlates with the findings prior PET/CT. The lymph node is immediately on the chest wall precl uding safe core biopsy. Fine-needle aspiration was performed and several passes. Samples were present ed to the food technologist who was present during the biopsy. The needles were removed. Manual pressure was held. No immediate complications were identified. IMPRESSION: Ultrasound 11 Fine-needle aspiration, abnormal right internal mammary lymph node Electronically signed by: Michael Burt MD (04/26/2021 2:44 PM) [id number]
--- NOTE | 2021-05-04 12:34 | PATHOLOGY ---
Note [facility] Accession Number: [id number] TESTS RESULT FLAG UNITS REF RANGE LAB Clinician Provided Cytology Information No. of containers..01 Other (Miscellaneous) Source: [A] [address] DIAGNOSIS: [A] [address] SUSPICIOUS FOR MALIGNANCY THERE ARE ATYPICAL LARGE CELLS, PRESENT SINGLY AND IN SMALL CLUSTERS. THESE CELLS ARE CD20 AND PAX-5 POSITIVE. THESE CELLS ARE CD3, AE1/AE3, CD56, AND TTF-1 NEGATIVE. THE FINDINGS ARE HIGHLY SUSPICIOUS FOR LARGE B-CELL LYMPHOMA. THE CASE IS ALSO EXAMINED BY DR. COVINGTON, WHO CONCURS WITH THE DIAGNOSIS. RESULTS ARE DISCUSSED WITH DR. MACIEL ON 05/01/21 AT 10:50 AM. THIS EVALUATION INCLUDES EXAMINATION OF A CELL BLOCK, IN ADDITION TO IMMUNOSTAINS FOR CD20, PAX-5, CD3, AE1/AE3, CD56, TTF-1. Signed out by: 02 Hector Castellanos MD, Pathologist NPI- [id number] Performed by: Sydnee Montgomery, Front Office Specialist ([facility]) Gross description: 01 22ML, CLEAR, COLORLESS /LCS 04/26/2021 1723 Local FLAG LEGEND: L-Low Normal,H-High Normal,LL-Alert Low,HH-Alert High <-Panic Low,>-Panic High,A-Abnormal,AA-Critical Abnormal Performed at: [facility] [address] [place] [address] Robby Jane MD, [address] [facility] [address] [place] [address] Hector Castellanos MD, Specimen Comment: [id number] Performed at: [address], [place], [place] [id number] MD Robby Jane MD Phone: [phone]
== END 2021-04-26 09:57 | disposition home or self-care (01) ==
LOC: INTRAD 06:39
PROVIDERS: ATTEND Internal Medicine Hematology & Oncology
DX: C83.32 Diffuse large B-cell lymphoma, intrathoracic lymph nodes (principal); E78.00 Pure hypercholesterolemia, unspecified; J45.909 Unspecified asthma, uncomplicated; E03.9 Hypothyroidism, unspecified; G47.30 Sleep apnea, unspecified; K21.9 Gastro-esophageal reflux disease without esophagitis; F41.9 Anxiety disorder, unspecified; F32.9 Major depressive disorder, single episode, unspecified; Z79.899 Other long term (current) drug therapy; Z98.890 Other specified postprocedural states; Z72.89 Other problems related to lifestyle
CPT/HCPCS: 10005; 36415; 80053; 85025; 85610; J1642; J3490